=== PATIENT | male | born 1940 | race Caucasian/White ===

== ENCOUNTER 2017-07-22 07:15 | Inpatient (IN) | payer OTHER, BC ==
[~2017-07-22] VITALS: Ht 180.3 cm; Wt 123.2 kg
[2017-07-22 07:58] LABS: BASOPHIL (%) 0.7 % (0-1); BASOPHIL COUNT 0.1 K/uL (0-0.1); EOSINOPHIL (%) 4.4 % (0-5); EOSINOPHIL COUNT 0.4 K/uL (0-0.3); HEMATOCRIT 42.6 % (38.0-50.0); HEMOGLOBIN 14.3 G/DL (12.5-16.6); IMMATURE GRANULOCYTE (%) 0.2 % (0.0-0.7); LYMPHOCYTE (%) 19.5 % (15-42); LYMPHOCYTE COUNT 1.9 K/uL (1.0-2.8); MCH 29.1 PG (29.0-34.0); MCHC 33.6 G/DL (30.0-36.0); MCV 86.6 FL (86-99); MONOCYTE (%) 7.1 % (3-12); MONOCYTE COUNT 0.7 K/uL (0-0.8); NEUTROPHIL (%) 68.1 % (45-76); NEUTROPHIL COUNT 6.6 K/uL (1.8-6.4); PLATELET COUNT 217 K/uL (156-360); RBC DIS.WIDTH-CV 14.8 % (11.8-14.6); RED BLOOD COUNT 4.92 M/uL (4.00-5.50); WHITE BLOOD COUNT 9.7 K/uL (4.1-10.2)
[2017-07-22 08:06] LABS: PTT 29.9 SEC (25-37)
[2017-07-22 08:21] LABS: TROP-I INTERPRETATION NEGATIVE; TROPONIN-I < 0.01 ng/mL (0.0-0.30)
[2017-07-22 08:30] LABS: CHLORIDE 105 MEQ/L (99-109); CREATININE 1.3 MG/DL (0.6-1.3); GFR ESTIMATE (CALCULATED) 57 mL/min/ (58.99-99999); GLUCOSE 122 mg/dL (70-99); MAGNESIUM 1.8 mg/dl (1.3-2.7); POTASSIUM 3.6 MEQ/L (3.7-5.4); SODIUM 141 MEQ/L (136-147); UREA NITROGEN (BUN) 18 mg/dL (9-23)
[2017-07-22] MEDS ORDERED: CATAPRES0.3 MG PO (10:48)
[2017-07-22] MEDS ORDERED: METRO CREAM 0.745 GM TP (10:48)
[2017-07-22] MEDS ORDERED: LIPITOR20 MG PO (10:49)
[2017-07-22] MEDS ORDERED: ATENOLOL100 MG PO (10:49)
[2017-07-22] MEDS ORDERED: HYTRIN10 MG PO (10:49)
[2017-07-22] MEDS ORDERED: K-DUR20 MEQ PO (10:49)
[2017-07-22] MEDS ORDERED: NORVASC10 MG PO (10:50)
[2017-07-22] MEDS ORDERED: COZAAR100 MG PO (10:50)
[2017-07-22] MEDS ORDERED: ADULT ASPIRIN R81 MG PO (10:50)
[2017-07-22] MEDS ORDERED: CLARITIN,ALAVAR10 MG PO (10:50)
[2017-07-22] MEDS ORDERED: TEKTURNA300 MG PO (10:50)
[2017-07-22 21:00] VITALS: BP 168/56
[2017-07-22 23:37] VITALS: BP 147/68
[2017-07-23 03:58] VITALS: BP 168/76
[2017-07-23 06:04] LABS: HEMATOCRIT 40.5 % (38.0-50.0); HEMOGLOBIN 13.5 G/DL (12.5-16.6); MCHC 33.3 G/DL (30.0-36.0); MCV 86.9 FL (86-99); PLATELET COUNT 214 K/uL (156-360); RBC DIS.WIDTH-CV 14.6 % (11.8-14.6); RBC DIS.WIDTH-SD 46.9 % (39-53); RED BLOOD COUNT 4.66 M/uL (4.00-5.50); WHITE BLOOD COUNT 5.5 K/uL (4.1-10.2)
[2017-07-23 06:24] LABS: ALBUMIN 3.7 G/DL (3.2-4.8); ALKALINE PHOSPHATASE 64 IU/L (3-129); ALT (GPT) 19 IU/L (3-49); AST (GOT) 19 IU/L (2-34); CHLORIDE 104 MEQ/L (99-109); CREATININE 1.4 MG/DL (0.6-1.3); GFR ESTIMATE (CALCULATED) 52 mL/min/ (58.99-99999); GLUCOSE 160 mg/dL (70-99); POTASSIUM 3.8 MEQ/L (3.7-5.4); SODIUM 143 MEQ/L (136-147); TOTAL BILIRUBIN 0.6 MG/DL (0.0-1.0); TOTAL PROTEIN 6.2 G/DL (6.4-8.3); UREA NITROGEN (BUN) 23 mg/dL (9-23)
[2017-07-23 08:17] VITALS: BP 153/68
[2017-07-23 11:24] VITALS: BP 137/63
[2017-07-23 15:30] VITALS: BP 124/60
[2017-07-23 19:57] VITALS: BP 148/65
[2017-07-23 23:47] VITALS: BP 129/62
[2017-07-24] VITALS (7 sets, daily range): BP systolic 112–165; BP diastolic 54–77
[2017-07-24 06:17] LABS: HEMATOCRIT 37.7 % (38.0-50.0); HEMOGLOBIN 12.3 G/DL (12.5-16.6); MCH 28.5 PG (29.0-34.0); MCHC 32.6 G/DL (30.0-36.0); MCV 87.5 FL (86-99); PLATELET COUNT 206 K/uL (156-360); RBC DIS.WIDTH-CV 14.6 % (11.8-14.6); RBC DIS.WIDTH-SD 47.8 % (39-53); RED BLOOD COUNT 4.31 M/uL (4.00-5.50); WHITE BLOOD COUNT 11.5 K/uL (4.1-10.2)
[2017-07-24 06:44] LABS: ALBUMIN 3.5 G/DL (3.2-4.8); ALKALINE PHOSPHATASE 59 IU/L (3-129); ALT (GPT) 17 IU/L (3-49); AST (GOT) 18 IU/L (2-34); CHLORIDE 105 MEQ/L (99-109); CREATININE 1.5 MG/DL (0.6-1.3); GFR ESTIMATE (CALCULATED) 48 mL/min/ (58.99-99999); GLUCOSE 126 mg/dL (70-99); POTASSIUM 3.9 MEQ/L (3.7-5.4); SODIUM 142 MEQ/L (136-147); TOTAL PROTEIN 5.6 G/DL (6.4-8.3)
[2017-07-24 06:48] LABS: TOTAL BILIRUBIN 0.4 MG/DL (0.0-1.0); UREA NITROGEN (BUN) 37 mg/dL (9-23)
[2017-07-25 00:03] VITALS: BP 135/51
[2017-07-25 04:38] VITALS: BP 135/63
[2017-07-25] MEDS ORDERED: FUROSEMIDE20 MG PO (06:38)
[2017-07-25] MEDS ORDERED: PREDNISONE20 MG PO (06:38)
[2017-07-25] MEDS ORDERED: CEFDINIR300 MG PO (06:39)
[2017-07-25 06:46] LABS: HEMATOCRIT 38.6 % (38.0-50.0); HEMOGLOBIN 12.7 G/DL (12.5-16.6); MCH 29.1 PG (29.0-34.0); MCHC 32.9 G/DL (30.0-36.0); MCV 88.5 FL (86-99); RBC DIS.WIDTH-SD 48.9 % (39-53); RED BLOOD COUNT 4.36 M/uL (4.00-5.50); WHITE BLOOD COUNT 10.1 K/uL (4.1-10.2)
[2017-07-25 07:19] LABS: PLAT.SUFFICIENCY ADEQUATE; PLATELET COUNT 208 K/uL (156-360)
[2017-07-25 07:28] VITALS: BP 140/60
[2017-07-25 07:33] LABS: ALBUMIN 3.5 G/DL (3.2-4.8); ALKALINE PHOSPHATASE 56 IU/L (3-129); ALT (GPT) 23 IU/L (3-49); AST (GOT) 24 IU/L (2-34); CHLORIDE 104 MEQ/L (99-109); CREATININE 1.4 MG/DL (0.6-1.3); GFR ESTIMATE (CALCULATED) 52 mL/min/ (58.99-99999); GLUCOSE 106 mg/dL (70-99); POTASSIUM 3.8 MEQ/L (3.7-5.4); SODIUM 146 MEQ/L (136-147); TOTAL BILIRUBIN 0.5 MG/DL (0.0-1.0); TOTAL PROTEIN 5.7 G/DL (6.4-8.3); UREA NITROGEN (BUN) 33 mg/dL (9-23)
[2017-07-25 11:59] VITALS: BP 176/78
== END 2017-07-25 19:13 | disposition home health service (06) | DRG 202 ==
LOC: EME 07:15 → EDOF 12:34 → 5SOUTH 12:34 → ENRESERV 12:36 → 5SOUTH 21:01 → ENPENDDIS 07-25 13:51 → 5SOUTH 07-25 19:13
PROVIDERS: Emergency Medicine; Internal Medicine
DX: J20.9 Acute bronchitis, unspecified (principal); R09.02 Hypoxemia; E87.6 Hypokalemia; I13.0 Hypertensive heart and chronic kidney disease with heart failure and stage 1 through stage 4 chronic kidney disease, or unspecified chronic kidney disease; E11.22 Type 2 diabetes mellitus with diabetic chronic kidney disease; I50.31 Acute diastolic (congestive) heart failure; N18.2 Chronic kidney disease, stage 2 (mild); E78.5 Hyperlipidemia, unspecified; M10.9 Gout, unspecified; K21.9 Gastro-esophageal reflux disease without esophagitis; E66.9 Obesity, unspecified; Z68.37 Body mass index [BMI] 37.0-37.9, adult; Z83.3 Family history of diabetes mellitus; Z86.73 Personal history of transient ischemic attack (TIA), and cerebral infarction without residual deficits; Z87.891 Personal history of nicotine dependence
CPT/HCPCS: 71045; 71275; 80048; 80053; 83735; 83880; 84484; 85025; 85027; 85610; 85730; 87502; 87631; 93005; 93306; 94640; 94799; 99281; 99285; J0696; J1650; J1940; J2930; J7512

== ENCOUNTER 2017-09-09 21:40 | Inpatient (IN) | payer OTHER, BC ==
[~2017-09-09] VITALS: Ht 180.3 cm; Wt 117.8 kg
[~2017-09-09 21:40] MED LIST: ADULT ASPIRIN R81 MG PO; ATENOLOL100 MG PO; CATAPRES0.3 MG PO; CEFDINIR300 MG PO; CLARITIN,ALAVAR10 MG PO; COZAAR100 MG PO; FUROSEMIDE20 MG PO; HYTRIN10 MG PO; K-DUR20 MEQ PO; LIPITOR20 MG PO; METRO CREAM 0.745 GM TP; NORVASC10 MG PO; PREDNISONE20 MG PO; TEKTURNA300 MG PO
[2017-09-09 22:12] LABS: HEMATOCRIT 39.8 % (38.0-50.0); HEMOGLOBIN 13.3 G/DL (12.5-16.6); MCH 28.9 PG (29.0-34.0); MCHC 33.4 G/DL (30.0-36.0); MCV 86.3 FL (86-99); RBC DIS.WIDTH-CV 13.7 % (11.8-14.6); RBC DIS.WIDTH-SD 43.1 % (39-53); RED BLOOD COUNT 4.61 M/uL (4.00-5.50); WHITE BLOOD COUNT 16.2 K/uL (4.1-10.2)
[2017-09-09 22:19] LABS: PLATELET COUNT 311 K/uL (156-360)
[2017-09-09 22:25] LABS: ALBUMIN 3.6 g/dL (3.2-4.8); CHLORIDE 102 mEq/L (99-109); POTASSIUM 3.8 mEq/L (3.7-5.4); SODIUM 141 mEq/L (136-147)
[2017-09-09 22:28] LABS: GLUCOSE 121 mg/dL (70-99)
[2017-09-09 22:30] LABS: TOTAL BILIRUBIN 0.3 mg/dL (0.0-1.0)
[2017-09-09 22:31] LABS: ALKALINE PHOSPHATASE 80 IU/L (3-129); CREATININE 1.7 mg/dL (0.6-1.3); GFR ESTIMATE (CALCULATED) 42 mL/min/ (58.99-99999)
[2017-09-09 22:32] LABS: UREA NITROGEN (BUN) 26 mg/dL (9-23)
[2017-09-09 22:33] LABS: AST (GOT) 23 IU/L (2-34)
[2017-09-09 22:34] LABS: ALT (GPT) 27 IU/L (3-49)
[2017-09-09 22:41] LABS: TROP-I INTERPRETATION NEGATIVE; TROPONIN-I < 0.01 ng/mL (0.0-0.30)
[2017-09-10] MEDS ORDERED: AMLODIPINE BESY10 MG PO (00:52)
[2017-09-10] MEDS ORDERED: LOSARTAN POTAS100 MG PO (00:52)
[2017-09-10] MEDS ORDERED: CLONIDINE HCL0.3 MG PO (00:53)
[2017-09-10] MEDS ORDERED: ATORVASTATIN CA20 MG PO (00:54)
[2017-09-10 01:34] VITALS: BP 160/68
[2017-09-10 03:50] VITALS: BP 159/99
[2017-09-10 07:18] LABS: HEMATOCRIT 37.7 % (38.0-50.0); HEMOGLOBIN 12.7 G/DL (12.5-16.6); MCH 28.9 PG (29.0-34.0); MCHC 33.7 G/DL (30.0-36.0); MCV 85.9 FL (86-99); PLATELET COUNT 291 K/uL (156-360); RBC DIS.WIDTH-SD 43.7 % (39-53); RED BLOOD COUNT 4.39 M/uL (4.00-5.50); WHITE BLOOD COUNT 22.8 K/uL (4.1-10.2)
[2017-09-10 07:35] LABS: TROP-I INTERPRETATION NEGATIVE; TROPONIN-I 0.03 ng/mL (0.0-0.30)
[2017-09-10 07:44] LABS: CHLORIDE 102 MEQ/L (99-109); CREATININE 1.4 MG/DL (0.6-1.3); GFR ESTIMATE (CALCULATED) 52 mL/min/ (58.99-99999); GLUCOSE 116 mg/dL (70-99); POTASSIUM 3.5 MEQ/L (3.7-5.4); SODIUM 140 MEQ/L (136-147); UREA NITROGEN (BUN) 23 mg/dL (9-23)
[2017-09-10 07:55] VITALS: BP 159/72
[2017-09-10 09:06] LABS: APPEARANCE CLEAR ((CLEAR)); BILIRUBIN NEGATIVE; BLOOD SMALL; COLOR COLORLESS ((YELLOW)); GLUCOSE (STRIP) NEGATIVE; KETONES NEGATIVE; LEUKOCYTES NEGATIVE; NITRITE NEGATIVE; PROTEIN (STRIP) NEGATIVE; SPECIFIC GRAVITY 1.005 (1.000-1.030); UROBILINOGEN 0.2 MG/DL (0.2-1.0)
[2017-09-10 09:36] LABS: BACTERIA RARE /HPF; EPITHELIAL CELLS NONE SEEN /HPF; MUCUS TRACE /LPF; RED BLOOD CELLS 0-5 /HPF (0-5); UCUL ADDED? NO; WHITE BLOOD CELLS NONE SEEN /HPF (0-5)
[2017-09-10 11:57] VITALS: BP 168/72
[2017-09-10 14:36] LABS: TROP-I INTERPRETATION NEGATIVE; TROPONIN-I 0.02 ng/mL (0.0-0.30)
[2017-09-10 15:54] VITALS: BP 157/69
[2017-09-10 19:55] VITALS: BP 154/70
[2017-09-11 00:30] VITALS: BP 131/60
[2017-09-11 03:55] VITALS: BP 149/67
[2017-09-11 06:45] VITALS: BP 172/74
[2017-09-11 12:16] VITALS: BP 139/74
[2017-09-11 15:49] VITALS: BP 147/64
[2017-09-11 19:42] VITALS: BP 150/60
[2017-09-12] VITALS: BP 127/67
[2017-09-12 03:45] VITALS: BP 131/60
[2017-09-12 07:12] VITALS: BP 178/74
[2017-09-12 10:57] VITALS: BP 150/66
[2017-09-12 11:54] LABS: TROP-I INTERPRETATION NEGATIVE; TROPONIN-I 0.01 ng/mL (0.0-0.30)
[2017-09-12 16:54] VITALS: BP 134/60
[2017-09-12 19:21] VITALS: BP 165/72
[2017-09-13] VITALS (7 sets, daily range): BP systolic 138–174; BP diastolic 65–78
[2017-09-14 04:05] VITALS: BP 166/74
[2017-09-14 07:12] VITALS: BP 167/74
[2017-09-14 11:43] VITALS: BP 152/70
[2017-09-14 15:21] VITALS: BP 166/73
[2017-09-14 19:30] VITALS: BP 163/81
[2017-09-14 23:45] VITALS: BP 158/62
[2017-09-15 07:35] VITALS: BP 186/79
[2017-09-15 11:31] VITALS: BP 178/73
[2017-09-15 15:51] VITALS: BP 191/77
[2017-09-15] MEDS ORDERED: AMOX TR-K CLV1 EAC4 PO (17:53)
[2017-09-15] MEDS ORDERED: DULERA 100 MCG/13 GM IH (17:55)
[2017-09-15] MEDS ORDERED: SPIRIVA RESPIMAT4 GM IH (17:55)
[2017-09-15] MEDS ORDERED: PREDNISONE20 MG PO (17:55)
[2017-09-15 20:28] VITALS: BP 168/66; BP 170/77
[2017-09-16 00:23] VITALS: BP 166/61
[2017-09-16 04:01] VITALS: BP 150/70
[2017-09-16 07:14] VITALS: BP 188/79
== END 2017-09-16 14:19 | disposition home health service (06) | DRG 191 ==
LOC: EME → EDBD 21:40 → EME 21:40 → 2EAST 23:51 → ENRESERV 23:51 → EDOF 23:51 → ENRESERV 23:57 → 2EAST 09-10 01:12
PROVIDERS: Emergency Medicine; Internal Medicine; Physician Assistant
DX: J44.9 Chronic obstructive pulmonary disease, unspecified (principal); J84.10 Pulmonary fibrosis, unspecified; R09.02 Hypoxemia; I50.32 Chronic diastolic (congestive) heart failure; I13.0 Hypertensive heart and chronic kidney disease with heart failure and stage 1 through stage 4 chronic kidney disease, or unspecified chronic kidney disease; N18.3 Chronic kidney disease, stage 3 (moderate); K21.9 Gastro-esophageal reflux disease without esophagitis; E78.5 Hyperlipidemia, unspecified; D72.829 Elevated white blood cell count, unspecified; E11.22 Type 2 diabetes mellitus with diabetic chronic kidney disease; Z83.3 Family history of diabetes mellitus; Z99.81 Dependence on supplemental oxygen; Z86.73 Personal history of transient ischemic attack (TIA), and cerebral infarction without residual deficits; Z79.899 Other long term (current) drug therapy; Z87.891 Personal history of nicotine dependence
CPT/HCPCS: 71045; 71046; 71250; 78582; 80048; 80053; 81003; 83605; 83880; 84484; 85027; 85379; 87040; 87449; 93005; 93970; 94640; 94640 76; 94760; 94799; 99202; 99281; 99285; A9540; A9567; J1650; J1940; J2543; J7050; J7512